=== PATIENT | female | born 1990 | race American Indian/Alaskan Native ===

== ENCOUNTER 2019-05-14 12:09 | Inpatient (IN) | payer OTHER ==
--- NOTE | 2019-05-14 12:19 | Emergency Department Report ---
Blank Doc - Documentation Documentation: 29-year-old female that presents with flank pains and urinary symptoms. Stated has n/v. This initial assessment/diagnostic orders/clinical plan/treatment(s) is/are subject to change based on patient's health status, clinical progression and re- assessment by fellow clinical providers in the ED. Further treatment and workup at subsequent clinical providers discretion. Patient/guardians urged not to elope from the ED as their condition may be serious if not clinically assessed and managed. Initial orders include: 1- Patient sent to [facility] for further evaluation and treatment 2- labs 3- UA
[2019-05-14 14:50] LABS: Hemoglobin 12.5 gm/dl (10.1-14.3); Mean Corpuscular HGB Conc 32 % (30-34); Mean Corpuscular Volume 76 fl (79-97); Platelet Count 262 K/mm3 (140-440); Red Blood Count 5.13 M/mm3 (3.65-5.03); Red Cell Distribution Width 13.8 % (13.2-15.2)
[2019-05-14 14:51] LABS: Bacteria,Urine 1+ /HPF (Negative); Bilirubin,Urine MOD (Negative); Blood,Urine NEG (Negative); Color,Urine Amber (Yellow); Hyaline Casts,Urine 4 /LPF; Mucus,Urine 2+ /HPF
[2019-05-14] MEDS ORDERED: ONDANSETRON 4 MG ODT TAB PO ONE (14:56)
[2019-05-14 14:58] LABS: Albumin 4.1 g/dL (3.9-5); BUN/Creatinine Ratio 11; Blood Urea Nitrogen 8 mg/dL (7-17); Calcium 9.2 mg/dL (8.4-10.2); Hemolysis Index 0
[2019-05-14 15:01] LABS: Ictotest,Urine Positive (Negative)
--- NOTE | 2019-05-14 15:04 | Emergency Department Report ---
HPI - General Chief Complaint: Back Pain/Injury Time Seen by Provider: 05/14/19 12:18 - HPI HPI: 29-year-old -[place] female presents to the emergency department with complaint of back pain, upper abdominal pain, chills, nausea, vomiting for the p ast few days. The patient was recently started on some Bactrim for a urinary tract infection 3 days ago. Otherwise she has not taken anything for her symptoms prior to arrival. No past medical history. She does not have a primary care physician. Patient recently traveled to [place]. ED Past Medical Hx - Past Medical History Previous Medical History?: No - Surgical History Past Surgical History?: No - Social History Smoking Status: Never Smoker Substance Use Type: Alcohol ED Review of Systems ROS: Stated complaint: VOMIT/BODY ACHE/PAIN Other details as noted in HPI Comment: All other systems reviewed and negative Constitutional: chills. denies: diaphoresis Eyes: other (scleral icterus / jaundice). denies: eye pain ENT: denies: ear pain, throat pain Respiratory: denies: cough, shortness of breath Cardiovascular: denies: chest pain, palpitations Gastrointestinal: abdominal pain, nausea Genitourinary: dysuria. denies: discharge Musculoskeletal: back pain. denies: arthralgia Skin: change in color. denies: rash Neurological: denies: headache, numbness Physical Exam - Physical Exam Vital Signs: Vital Signs 05/14/19 12:18 Temperature 98.4 F Pulse Rate 78 Respiratory 16 Rate Blood Pressure 119/72 O2 Sat by Pulse 98 Oximetry Physical Exam: GENERAL: The patient is well-developed well-nourished. HENT: Normocephalic. Atraumatic. Patient has moist mucous membranes. EYES: Extraocular motions are intact. Pupils equal reactive to light bilaterally. There is scleral icterus. NECK: Supple. Trachea is midline. CHEST/LUNGS: Clear to auscultation. There is no respiratory distress noted. HEART/CARDIOVASCULAR: Regular. There is no tachycardia. There is no murmur. ABDOMEN: Abdomen is soft. Mild right upper quadrant and left upper quadrant tenderness to palpation. No epigastric tenderness to palpation. No guarding. Patient has normal bowel sounds. There is no abdominal distention. SKIN: Skin is warm and dry. Patient is jaundiced. NEURO: The patient is awake, alert, and oriented. The patient is cooperative. The patient has no focal neurologic deficits. Normal speech. MUSCULOSKELETAL: There is no tenderness or deformity. There is no evidence of acute injury. ED Course Vital Signs 05/14/19 12:18 Temperature 98.4 F Pulse Rate 78 Respiratory 16 Rate Blood Pressure 119/72 O2 Sat by Pulse 98 Oximetry - Consultations Consultation #1: I spoke with the air bag stripper on-call, Dr. Brambila, regarding the patient's presentation, jaundice, elevated LFTs and bilirubin. He agrees that the patient may benefit from an admission for further workup. He recommends sending an acute hepatitis panel, AMA, coags, Tylenol level and putting the patient on some IV fluid. GI will see the patient as a consult. 05/14/19 18:01 ED Medical Decision Making - Lab Data Result diagrams: 05/14/19 13:34 05/14/19 13:34 - Radiology Data Radiology results: report reviewed Abdominal ultrasound is a normal examination without any acute process found. - Medical Decision Making This patient presents with the initial complaint of some back pain, mild abdominal pain, chills, nausea and jaundice after being on the Bactrim for a urinary tract infection. The patient does have some scleral icterus and gen eralized jaundice but otherwise does not appear in any acute distress. Vital signs stable throughout her ED course. Patient's labs came back showing severely elevated bilirubin and LFTs. Abdominal ultrasound did not show any signs of cholelithiasis, cholecystitis, biliary ductal dilation or any other acute process. Further lab tests have been ordered. GI has been contacted and consult at. The patient has been accepted for admission by the hospitalist, Dr. Quezada. - Differential Diagnosis hepatitis, autoimmune, choledocholithiasis, malignancy Critical Care Time: No Critical care attestation.: If time is entered above; I have spent that time in minutes in the direct care of this critically ill patient, excluding procedure time. ED Disposition Clinical Impression: Acute hepatitis, Transaminitis, Elevated bilirubin, Jaundice Disposition: OP ADMIT IP TO THIS HOSP Is pt being admited?: Yes Condition: Fair Time of Disposition: 17:58
[2019-05-14 15:26] LABS: Alanine Aminotransferase 2747 units/L (7-56)
[2019-05-14 16:59] LABS: Basophils % (Manual) 0 % (0.0-1.8); Eosinophils % (Manual) 0 % (0.0-4.3); Hypochromasia 1+; Total Cells Counted 100
[2019-05-14 17:00] LABS: Anisocytosis 1+; Large Platelets 1+; Platelet Estimate Consistent w Auto; Target Cells 1+
[2019-05-14] MEDS ORDERED: POTASSIUM CHLORIDE ER 20 MEQ TAB PO ONE (17:04)
--- NOTE | 2019-05-14 17:24 | Ultrasound Report ---
ULTRASOUND ABDOMEN, LIMITED (RIGHT UPPER QUADRANT) INDICATION: abd pain, jaundice, elevated bilirubin/LFTs. COMPARISON: None available. FINDINGS: Pancreas: Visualized portion shows no significant abnormality. Liver: Normal. Gallbladder: Normal. Bile ducts: Normal. Common Bile Duct measures 2.0 mm. Free fluid: None. Additional Findings: None. IMPRESSION: 1. No sonographic abnormality of the right upper quadrant. Signer Name: Ash Molina MD Signed: 05/14/2019 5:19 PM Workstation Name: [id number]
[2019-05-14] MEDS ORDERED: SODIUM CHLORIDE 0.9% 1000 ML 1,000 ML IV ONE (17:55)
[2019-05-14 20:36] LABS: INR 1.12 (0.87-1.13)
[2019-05-14 20:37] LABS: Partial Thromboplastin Time 26.2 Sec. (24.2-36.6)
[2019-05-14 20:43] LABS: Hepatitis B Surface Antigen Non-Reactive (Negative); Hepatitis C Virus Antibody Non-Reactive (NonReactive)
[2019-05-14] MEDS ORDERED: ONDANSETRON 4 MG/2 ML INJ IV PRN (20:57)
--- NOTE | 2019-05-14 21:18 | History and Physical Report ---
History of Present Illness Date of examination: 05/14/19 Date of admission: 05/14/19 17:58 Chief complaint: Weakness and vomiting x 2 days History of present illness: 29-year-old -[place] female presents to the emergency department with complaint of back pain, upper abdominal pain, chills, nausea, vomiting for the past few days. The patient was recently started on some Bactrim for a urinary tract infection 3 days ago. Otherwise she has not taken anything for her symptoms prior to arrival. No past medical history. She does not have a primary care physician. Patient recently traveled to [place]. Past Medical History Previous Medical History?: No Surgical History Past Surgical History?: No Social History Smoking Status: Never Smoker Substance Use Type: Alcohol Family History No Review of Systems ROS: Stated complaint: VOMIT/BODY ACHE/PAIN Other details as noted in HPI Comment: All other systems reviewed and negative Constitutional: chills. denies: diaphoresis Eyes: other (scleral icterus / jaundice). denies: eye pain ENT: denies: ear pain, throat pain Respiratory: denies: cough, shortness of breath Cardiovascular: denies: chest pain, palpitations Gastrointestinal: abdominal pain, nausea Genitourinary: dysuria. denies: discharge Musculoskeletal: back pain. denies: arthralgia Skin: change in color. denies: rash Neurological: denies: headache, numbness Medications and Allergies Allergies Allergy/AdvReac Type Severity Reaction Status Date / Time No Known Allergies Allergy Verified 05/14/19 21:05 Home Medications Medication Instructions Recorded Confirmed Last Taken Type No Known Home Medications [No 05/14/19 05/14/19 Unknown History Reported Home Medications] Active Meds: Active Medications Sodium Chloride (Nacl 0.9% 1000 Ml) 1,000 mls @ 125 mls/hr IV ONCE ONE Stop: 05/15/19 01:54 Last Admin: 05/14/19 18:10 Dose: 125 mls/hr Documented by: Ondansetron HCl (Zofran) 4 mg IV Q3HR PRN PRN Reason: Nausea Exam - Constitutional Vitals: Temp Pulse Resp BP Pulse Ox 97.8 F 63 18 118/71 97 05/14/19 20:21 05/14/19 20:21 05/14/19 20:21 05/14/19 20:21 05/14/19 20:21 General appearance: Present: no acute distress, well-nourished - EENT Eyes: Present: PERRL, scleral icterus ENT: hearing intact, clear oral mucosa - Neck Neck: Present: supple, normal ROM - Respiratory Respiratory effort: normal Respiratory: bilateral: CTA - Cardiovascular Heart rate: 78 Rhythm: regular Heart Sounds: Present: S1 & S2. Absent: rub, click - Extremities Extremities: no ischemia, pulses intact, pulses symmetrical, No edema Peripheral Pulses: within normal limits - Abdominal General gastrointestinal: Present: soft, tender, non-distended, normal bowel sounds Localized gastrointestinal: tender: diffuse Female genitourinary: Present: normal - Rectal Rectal Exam: stool brown - Integumentary Integumentary: Present: clear, warm, dry - Musculoskeletal Musculoskeletal: gait normal, strength equal bilaterally - Psychiatric Psychiatric: appropriate mood/affect, intact judgment & insight - Neurologic Neurologic: CNII-XII intact, moves all extremities - Allied Health Allied health notes reviewed: nursing, case management Results - Labs CBC & Chem 7: 05/14/19 13:34 05/14/19 13:34 Labs: Laboratory Last Values WBC 6.9 K/mm3 (4.5-11.0) 05/14/19 13:34 RBC 5.13 M/mm3 (3.65-5.03) H 05/14/19 13:34 Hgb 12.5 gm/dl (10.1-14.3) 05/14/19 13:34 Hct 39.0 % (30.3-42.9) 05/14/19 13:34 MCV 76 fl (79-97) L 05/14/19 13:34 MCH 24 pg (28-32) L 05/14/19 13:34 MCHC 32 % (30-34) 05/14/19 13:34 RDW 13.8 % (13.2-15.2) 05/14/19 13:34 Plt Count 262 K/mm3 (140-440) 05/14/19 13:34 Kinney % (Auto) Popcorn Candy Maker 05/14/19 13:34 Add Manual Diff Complete 05/14/19 13:34 Total Counted 100 05/14/19 13:34 Seg Neuts % (Manual) 50.0 % (40.0-70.0) 05/14/19 13:34 Band Neutrophils % 0 % 05/14/19 13:34 Lymphocytes % (Manual) 21.0 % (13.4-35.0) 05/14/19 13:34 Reactive Lymphs % (Man) 6.0 % 05/14/19 13:34 Monocytes % (Manual) 23.0 % (0.0-7.3) H 05/14/19 13:34 Eosinophils % (Manual) 0 % (0.0-4.3) 05/14/19 13:34 Basophils % (Manual) 0 % (0.0-1.8) 05/14/19 13:34 Metamyelocytes % 0 % 05/14/19 13:34 Myelocytes % 0 % 05/14/19 13:34 Promyelocytes % 0 % 05/14/19 13:34 Blast Cells % 0 % 05/14/19 13:34 Nucleated RBC % Not Reportable 05/14/19 13:34 Seg Neutrophils # Man 3.5 K/mm3 (1.8-7.7) 05/14/19 13:34 Band Neutrophils # 0.0 K/mm3 05/14/19 13:34 Lymphocytes # (Manual) 1.4 K/mm3 (1.2-5.4) 05/14/19 13:34 Abs React Lymphs (Man) 0.4 K/mm3 05/14/19 13:34 Monocytes # (Manual) 1.6 K/mm3 (0.0-0.8) H 05/14/19 13:34 Eosinophils # (Manual) 0.0 K/mm3 (0.0-0.4) 05/14/19 13:34 Basophils # (Manual) 0.0 K/mm3 (0.0-0.1) 05/14/19 13:34 Metamyelocytes # 0.0 K/mm3 05/14/19 13:34 Myelocytes # 0.0 K/mm3 05/14/19 13:34 Promyelocytes # 0.0 K/mm3 05/14/19 13:34 Blast Cells # 0.0 K/mm3 05/14/19 13:34 WBC Morphology Not Reportable 05/14/19 13:34 Hypersegmented Neuts Not Reportable 05/14/19 13:34 Hyposegmented Neuts Not Reportable 05/14/19 13:34 Hypogranular Neuts Not Reportable 05/14/19 13:34 Smudge Cells Not Reportable 05/14/19 13:34 Toxic Granulation Not Reportable 05/14/19 13:34 Toxic Vacuolation Not Reportable 05/14/19 13:34 Dohle Bodies Not Reportable 05/14/19 13:34 Pelger-Huet Anomaly Not Reportable 05/14/19 13:34 Pankaj Rods Not Reportable 05/14/19 13:34 Platelet Estimate Consistent w auto 05/14/19 13:34 Clumped Platelets Not Reportable 05/14/19 13:34 Plt Clumps, EDTA Not Reportable 05/14/19 13:34 Large Platelets 1+ 05/14/19 13:34 Giant Platelets Not Reportable 05/14/19 13:34 Platelet Satelliting Not Reportable 05/14/19 13:34 Plt Morphology Comment Not Reportable 05/14/19 13:34 RBC Morphology Not Reportable 05/14/19 13:34 Dimorphic RBCs Not Reportable 05/14/19 13:34 Polychromasia Not Reportable 05/14/19 13:34 Hypochromasia 1+ 05/14/19 13:34 Poikilocytosis Not Reportable 05/14/19 13:34 Anisocytosis 1+ 05/14/19 13:34 Microcytosis Not Reportable 05/14/19 13:34 Macrocytosis Not Reportable 05/14/19 13:34 Spherocytes Not Reportable 05/14/19 13:34 Pappenheimer Bodies Not Reportable 05/14/19 13:34 Sickle Cells Not Reportable 05/14/19 13:34 Target Cells 1+ 05/14/19 13:34 Tear Drop Cells Not Reportable 05/14/19 13:34 Ovalocytes Not Reportable 05/14/19 13:34 Helmet Cells Not Reportable 05/14/19 13:34 Loyd-Delmita Bodies Not Reportable 05/14/19 13:34 [place] Rings Not Reportable 05/14/19 13:34 [place] Cells Not Reportable 05/14/19 13:34 Bite Cells Not Reportable 05/14/19 13:34 Crenated Cell Not Reportable 05/14/19 13:34 Elliptocytes Not Reportable 05/14/19 13:34 Acanthocytes (Spur) Not Reportable 05/14/19 13:34 Rouleaux Not Reportable 05/14/19 13:34 Hemoglobin C Crystals Not Reportable 05/14/19 13:34 Schistocytes Not Reportable 05/14/19 13:34 Malaria parasites Not Reportable 05/14/19 13:34 Jorge Bodies Not Reportable 05/14/19 13:34 Hem Pathologist Commnt Sent to pathology 05/14/19 13:34 PT 14.3 Sec. (12.2-14.9) 05/14/19 19:56 INR 1.12 (0.87-1.13) 05/14/19 19:56 APTT 26.2 Sec. (24.2-36.6) 05/14/19 19:56 Sodium 135 mmol/L (137-145) L 05/14/19 13:34 Potassium 3.2 mmol/L (3.6-5.0) L 05/14/19 13:34 Chloride 91.9 mmol/L (98-107) L 05/14/19 13:34 Carbon Dioxide 24 mmol/L (22-30) 05/14/19 13:34 Anion Gap 22 mmol/L 05/14/19 13:34 BUN 8 mg/dL (7-17) 05/14/19 13:34 Creatinine 0.7 mg/dL (0.7-1.2) 05/14/19 13:34 Estimated GFR > 60 ml/min 05/14/19 13:34 BUN/Creatinine Ratio 11 % 05/14/19 13:34 Glucose 90 mg/dL (65-100) 05/14/19 13:34 Calcium 9.2 mg/dL (8.4-10.2) 05/14/19 13:34 Total Bilirubin 8.40 mg/dL (0.1-1.2) H 05/14/19 13:34 AST 2363 units/L (5-40) H 05/14/19 13:34 ALT 2747 units/L (7-56) H 05/14/19 13:34 Alkaline Phosphatase 179 units/L (35-129) H 05/14/19 13:34 Total Protein 9.1 g/dL (6.3-8.2) H 05/14/19 13:34 Albumin 4.1 g/dL (3.9-5) 05/14/19 13:34 Albumin/Globulin Ratio 0.8 % 05/14/19 13:34 Lipase 40 units/L (13-60) 05/14/19 13:34 HCG, Qual Negative (Negative) 05/14/19 13:34 Urine Color Keshia (Yellow) 05/14/19 14:17 Urine Turbidity Clear (Clear) 05/14/19 14:17 Urine pH 6.0 (5.0-7.0) 05/14/19 14:17 Ur Specific Leland 1.026 (1.003-1.030) 05/14/19 14:17 Urine Protein 100 mg/dl mg/dL (Negative) 05/14/19 14:17 Urine Glucose (UA) Neg mg/dL (Negative) 05/14/19 14:17 Urine Ketones 20 mg/dL (Negative) 05/14/19 14:17 Urine Blood Neg (Negative) 05/14/19 14:17 Urine Nitrite Neg (Negative) 05/14/19 14:17 Urine Bilirubin Mod (Negative) 05/14/19 14:17 Urine Ictotest Positive (Negative) 05/14/19 14:17 Urine Urobilinogen 4.0 mg/dL (<2.0) 05/14/19 14:17 Ur Leukocyte Esterase Neg (Negative) 05/14/19 14:17 Urine WBC (Auto) 36.0 /HPF (0.0-6.0) H 05/14/19 14:17 Urine RBC (Auto) 6.0 /HPF (0.0-6.0) 05/14/19 14:17 U Epithel Cells (Auto) 5.0 /HPF (0-13.0) 05/14/19 14:17 Urine Bacteria (Auto) 1+ /HPF (Negative) 05/14/19 14:17 Urine WBC Clumps 2+ /HPF 05/14/19 14:17 Hyaline Casts 4 /LPF 05/14/19 14:17 Urine Mucus 2+ /HPF 05/14/19 14:17 Acetaminophen < 5.0 ug/mL (10.0-30.0) L 05/14/19 19:56 Hepatitis A IgM Ab Reactive (NonReactive) A 05/14/19 19:56 Hep Bs Antigen Non-reactive (Negative) 05/14/19 19:56 Hep B Core IgM Ab Non-reactive (NonReactive) 05/14/19 19:56 Hepatitis C Antibody Non-reactive (NonReactive) 05/14/19 19:56 Short CBC 05/14/19 Range/Units 13:34 WBC 6.9 (4.5-11.0) K/mm3 Hgb 12.5 (10.1-14.3) gm/dl Hct 39.0 (30.3-42.9) % Plt Count 262 (140-440) K/mm3 [facility] 05/14/19 13:34 Sodium 135 L Potassium 3.2 L Chloride 91.9 L Carbon Dioxide 24 BUN 8 Creatinine 0.7 Glucose 90 Calcium 9.2 Liver Function 05/14/19 Range/Units 13:34 Total Bilirubin 8.40 H (0.1-1.2) mg/dL AST 2363 H (5-40) units/L ALT 2747 H (7-56) units/L Alkaline Phosphatase 179 H (35-129) units/L Albumin 4.1 (3.9-5) g/dL Urine 05/14/19 Range/Units 14:17 Urine Color Keshia (Yellow) Urine pH 6.0 (5.0-7.0) Ur Specific Leland 1.026 (1.003-1.030) Urine Protein 100 mg/dl (Negative) mg/dL Urine Glucose (UA) Neg (Negative) mg/dL Short CBC 05/14/19 Range/Units 13:34 WBC 6.9 (4.5-11.0) K/mm3 Hgb 12.5 (10.1-14.3) gm/dl Hct 39.0 (30.3-42.9) % Plt Count 262 (140-440) K/mm3 [facility] 05/14/19 13:34 Sodium 135 L Potassium 3.2 L Chloride 91.9 L Carbon Dioxide 24 BUN 8 Creatinine 0.7 Glucose 90 Calcium 9.2 Liver Function 05/14/19 Range/Units 13:34 Total Bilirubin 8.40 H (0.1-1.2) mg/dL AST 2363 H (5-40) units/L ALT 2747 H (7-56) units/L Alkaline Phosphatase 179 H (35-129) units/L Albumin 4.1 (3.9-5) g/dL Urine 05/14/19 Range/Units 14:17 Urine Color Keshia (Yellow) Urine pH 6.0 (5.0-7.0) Ur Specific Leland 1.026 (1.003-1.030) Urine Protein 100 mg/dl (Negative) mg/dL Urine Glucose (UA) Neg (Negative) mg/dL - Imaging and Cardiology Imaging and Cardiology: Abd Ultrasound FINDINGS: Pancreas: Visualized portion shows no significant abnormality. Liver: Normal. Gallbladder: Normal. Bile ducts: Normal. Common Bile Duct measures 2.0 mm. Free fluid: None. Additional Findings: None. IMPRESSION: 1. No sonographic abnormality of the right upper quadrant. Assessment and Plan Advance Directives: Yes (Full code) VTE prophylaxis?: Chemical Plan of care discussed with patient/family: Yes - Patient Problems (1) Acute hepatitis Current Visit: Yes Status: Acute Plan to address problem: Sec to Hepatitis A ID consult requested Contact Isolation IV Fluids (2) Transaminitis Current Visit: Yes Status: Acute Plan to address problem: Sec To Hepatitis A Contact Isolation Symptomatic treatment IV Fluids (3) Dehydration Current Visit: Yes Status: Acute Plan to address problem: IV Fluids for now (4) Hypokalemia Current Visit: Yes Status: Acute Plan to address problem: Supplemented (5) DVT prophylaxis Current Visit: Yes Status: Acute Plan to address problem: On Lovenox and GI prophylaxis
[2019-05-14] MEDS ORDERED: ACETAMINOPHEN 325 MG TAB PO PRN (21:22)
[2019-05-14] MEDS: D5W/0.9% NACL 1,000 ML IV SCH (22:59)
[2019-05-14] MEDS: FAMOTIDINE 20 MG/2 ML INJ IV SCH (22:59)
[2019-05-15] MEDS ORDERED: POTASSIUM CHLORIDE ER 20 MEQ TAB PO ONE (06:32)
[2019-05-15 07:01] LABS: Albumin 3.4 g/dL (3.9-5); BUN/Creatinine Ratio 10; Blood Urea Nitrogen 6 mg/dL (7-17); Calcium 8.3 mg/dL (8.4-10.2); Hemolysis Index 4
[2019-05-15 07:19] LABS: Hematocrit 34.2 % (30.3-42.9); Hemoglobin 10.9 gm/dl (10.1-14.3); Mean Corpuscular HGB Conc 32 % (30-34); Mean Corpuscular Volume 76 fl (79-97); Platelet Count 242 K/mm3 (140-440); Red Blood Count 4.51 M/mm3 (3.65-5.03); Red Cell Distribution Width 13.6 % (13.2-15.2)
[2019-05-15 08:44] LABS: Alanine Aminotransferase 2525 units/L (7-56)
[2019-05-15 09:32] LABS: Basophils % (Manual) 0 % (0.0-1.8); Total Cells Counted 100
[2019-05-15 09:33] LABS: Anisocytosis 1+; Hypochromasia 1+
[2019-05-15 09:34] LABS: Large Platelets Few; Platelet Estimate Consistent w Auto; Poikilocytosis 1+; Target Cells 1+
[2019-05-15] MEDS: FAMOTIDINE 20 MG/2 ML INJ IV SCH (09:34)
[2019-05-15] MEDS: HYDROmorphone 1 MG/1 ML INJ IV PRN ×4 (09:43→21:40)
[2019-05-15] MEDS: D5W/0.9% NACL 1,000 ML IV SCH ×2 (09:47→18:36)
--- NOTE | 2019-05-15 10:13 | Gastroenterology Consultation ---
<YESY PATTERSON - Last Filed: 05/15/19 10:28> History of Present Illness - Reason for Consult Consult date: 05/15/19 elevated LFTs, jaundice Requesting physician: EMILIANA SWAIN - History of Present Illness Patient is a 29 y/o female with no significant PMH who presented to ED with c/o acute onset of body aches/back pain, upper abdominal pain, chills, and N/V over the past few days. Upon admission, she was found to have elevated LFTs and po sitive for hepatitis A to which GI has been consulted. This morning patient was resting in bed w/o acute distress but noted to be somnolent from recent dose of pain medication per family at bedside who assisted with providing history. Reports symptoms now improving with no c/o of current abd pain and no N/V this am. Denies fever, wt loss, CP, SOB, signs of bleeding, or LGI symptoms such as diarrhea or constipation. No new medications except recently took Bactrim for UTI. Traveled to [place] last month but no known ill contacts. Has no prior hx or Fhx of liver disease. Drinks alcohol occasionally but no hx of IV drug use. Past History Past Medical History: No medical history Past Surgical History: No surgical history Social history: no significant social history, other (alcohol-occasional). den ies: smoking Medications and Allergies Allergies Allergy/AdvReac Type Severity Reaction Status Date / Time No Known Allergies Allergy Verified 05/14/19 21:05 Home Medications Medication Instructions Recorded Confirmed Last Taken Type No Known Home Medications [No 05/14/19 05/14/19 Unknown History Reported Home Medications] Active Meds: Active Medications Acetaminophen (Tylenol) 650 mg PO Q4H PRN PRN Reason: Pain MILD(1-3)/Fever >100.5/HWANG Famotidine (Pepcid) 20 mg IV BID KUSUM Last Admin: 05/15/19 09:34 Dose: 20 mg Documented by: Hydromorphone HCl (Dilaudid) 0.5 mg IV Q3H PRN PRN Reason: Pain , Severe (7-10) Last Admin: 05/15/19 09:43 Dose: 0.5 mg Documented by: Dextrose/Sodium Chloride (D5ns) 1,000 mls @ 75 mls/hr IV DIRECT KUSUM Last Admin: 05/15/19 09:47 Dose: 75 mls/hr Documented by: Ondansetron HCl (Zofran) 4 mg IV Q3H PRN PRN Reason: Nausea And Vomiting Sodium Chloride (Sodium Chloride Flush Syringe 10 Ml) 10 ml IV BID KUSUM Last Admin: 05/15/19 09:48 Dose: 10 ml Documented by: Sodium Chloride (Sodium Chloride Flush Syringe 10 Ml) 10 ml IV PRN PRN PRN Reason: LINE FLUSH medications reviewed/updated as required Review of Systems - Review of Systems All systems: negative Constitutional: chills, other (body aches) Gastrointestinal: abdominal pain, nausea, vomiting Exam - Constitutional Vital Signs: Temp Pulse Resp BP Pulse Ox 98.1 F 60 16 106/54 100 05/15/19 05:45 05/15/19 05:45 05/15/19 05:45 05/15/19 05:45 05/15/19 05:45 General appearance: no acute distress, other (somnolent) - Respiratory Respiratory effort: normal Respiratory: bilateral: CTA - Cardiovascular Rhythm: regular - Gastrointestinal General gastrointestinal: Present: soft, non-tender, non-distended, normal bowel sounds - Integumentary Integumentary: Present: warm, dry - Neurologic Neurological: alert and oriented x3 - Labs CBC & Chem 7: 05/15/19 06:12 05/15/19 06:12 Lab Results: Laboratory Results - last 24 hr 05/14/19 05/14/19 05/14/19 13:34 13:34 13:34 WBC 6.9 RBC 5.13 H Hgb 12.5 Hct 39.0 MCV 76 L MCH 24 L MCHC 32 RDW 13.8 Plt Count 262 Emmons % (Auto) Wool [place] Add Manual Diff Complete Total Counted 100 Seg Neuts % (Manual) 50.0 Band Neutrophils % 0 Lymphocytes % (Manual) 21.0 Reactive Lymphs % (Man) 6.0 Monocytes % (Manual) 23.0 H Eosinophils % (Manual) 0 Basophils % (Manual) 0 Metamyelocytes % 0 Myelocytes % 0 Promyelocytes % 0 Blast Cells % 0 Nucleated RBC % Not Reportable Seg Neutrophils # Man 3.5 Band Neutrophils # 0.0 Lymphocytes # (Manual) 1.4 Abs React Lymphs (Man) 0.4 Monocytes # (Manual) 1.6 H Eosinophils # (Manual) 0.0 Basophils # (Manual) 0.0 Metamyelocytes # 0.0 Myelocytes # 0.0 Promyelocytes # 0.0 Blast Cells # 0.0 WBC Morphology Not Reportable Hypersegmented Neuts Not Reportable Hyposegmented Neuts Not Reportable Hypogranular Neuts Not Reportable Smudge Cells Not Reportable Toxic Granulation Not Reportable Toxic Vacuolation Not Reportable Dohle Bodies Not Reportable Pelger-Huet Anomaly Not Reportable Pankaj Rods Not Reportable Platelet Estimate Consistent w auto Clumped Platelets Not Reportable Plt Clumps, EDTA Not Reportable Large Platelets 1+ Giant Platelets Not Reportable Platelet Satelliting Not Reportable Plt Morphology Comment Not Reportable RBC Morphology Not Reportable Dimorphic RBCs Not Reportable Polychromasia Not Reportable Hypochromasia 1+ Poikilocytosis Not Reportable Anisocytosis 1+ Microcytosis Not Reportable Macrocytosis Not Reportable Spherocytes Not Reportable Pappenheimer Bodies Not Reportable Sickle Cells Not Reportable Target Cells 1+ Tear Drop Cells Not Reportable Ovalocytes Not Reportable Helmet Cells Not Reportable [place] Bodies Not Reportable [place] Rings Not Reportable [place] Cells Not Reportable Bite Cells Not Reportable Crenated Cell Not Reportable Elliptocytes Not Reportable Acanthocytes (Spur) Not Reportable Rouleaux Not Reportable Hemoglobin C Crystals Not Reportable Schistocytes Not Reportable Malaria parasites Not Reportable Jorge Bodies Not Reportable Hem Pathologist Commnt Sent to pathology PT INR APTT Sodium 135 L Potassium 3.2 L Chloride 91.9 L Carbon Dioxide 24 Anion Gap 22 BUN 8 Creatinine 0.7 Estimated GFR > 60 BUN/Creatinine Ratio 11 Glucose 90 Calcium 9.2 Total Bilirubin 8.40 H AST 2363 H ALT 2747 H Alkaline Phosphatase 179 H Total Protein 9.1 H Albumin 4.1 Albumin/Globulin Ratio 0.8 Lipase 40 HCG, Qual Negative Urine Color Urine Turbidity Urine pH Ur Specific [place] Urine Protein Urine Glucose (UA) Urine Ketones Urine Blood Urine Nitrite Urine Bilirubin Urine Ictotest Urine Urobilinogen Ur Leukocyte Esterase Urine WBC (Auto) Urine RBC (Auto) U Epithel Cells (Auto) Urine Bacteria (Auto) Urine WBC Clumps Hyaline Casts Urine Mucus Acetaminophen Hepatitis A IgM Ab Hep Bs Antigen Hep B Core IgM Ab Hepatitis C Antibody 05/14/19 05/14/19 05/14/19 14:17 19:56 19:56 WBC RBC Hgb Hct MCV MCH MCHC RDW Plt Count Emmons % (Auto) Add Manual Diff Total Counted Seg Neuts % (Manual) Band Neutrophils % Lymphocytes % (Manual) Reactive Lymphs % (Man) Monocytes % (Manual) Eosinophils % (Manual) Basophils % (Manual) Metamyelocytes % Myelocytes % Promyelocytes % Blast Cells % Nucleated RBC % Seg Neutrophils # Man Band Neutrophils # Lymphocytes # (Manual) Abs React Lymphs (Man) Monocytes # (Manual) Eosinophils # (Manual) Basophils # (Manual) Metamyelocytes # Myelocytes # Promyelocytes # Blast Cells # WBC Morphology Hypersegmented Neuts Hyposegmented Neuts Hypogranular Neuts Smudge Cells Toxic Granulation Toxic Vacuolation Dohle Bodies Pelger-Huet Anomaly Pankaj Rods Platelet Estimate Clumped Platelets Plt Clumps, EDTA Large Platelets Giant Platelets Platelet Satelliting Plt Morphology Comment RBC Morphology Dimorphic RBCs Polychromasia Hypochromasia Poikilocytosis Anisocytosis Microcytosis Macrocytosis Spherocytes Pappenheimer Bodies Sickle Cells Target Cells Tear Drop Cells Ovalocytes Helmet Cells L[place] Bodies [place] Rings Gus Cells Bite Cells Crenated Cell Elliptocytes Acanthocytes (Spur) Rouleaux Hemoglobin C Crystals Schistocytes Malaria parasites Jorge Bodies Hem Pathologist Commnt PT 14.3 INR 1.12 APTT 26.2 Sodium Potassium Chloride Carbon Dioxide Anion Gap BUN Creatinine Estimated GFR BUN/Creatinine Ratio Glucose Calcium Total Bilirubin AST ALT Alkaline Phosphatase Total Protein Albumin Albumin/Globulin Ratio Lipase HCG, Qual Urine Color [place] Urine Turbidity Clear Urine pH 6.0 Ur Specific [place] 1.026 Urine Protein 100 mg/dl Urine Glucose (UA) Neg Urine Ketones 20 Urine Blood Neg Urine Nitrite Neg Urine Bilirubin Mod Urine Ictotest Positive Urine Urobilinogen 4.0 Ur Leukocyte Esterase Neg Urine WBC (Auto) 36.0 H Urine RBC (Auto) 6.0 U Epithel Cells (Auto) 5.0 Urine Bacteria (Auto) 1+ Urine WBC Clumps 2+ Hyaline Casts 4 Urine Mucus 2+ Acetaminophen Hepatitis A IgM Ab Reactive A Hep Bs Antigen Non-reactive Hep B Core IgM Ab Non-reactive Hepatitis C Antibody Non-reactive 05/14/19 05/15/19 05/15/19 19:56 06:12 06:12 WBC 5.2 RBC 4.51 Hgb 10.9 Hct 34.2 MCV 76 L MCH 24 L MCHC 32 RDW 13.6 Plt Count 242 Emm[place] % (Auto) [place] Add Manual Diff Complete Total Counted 100 Seg Neuts % (Manual) 41.0 Band Neutrophils % 0 Lymphocytes % (Manual) 34.0 Reactive Lymphs % (Man) 3.0 Monocytes % (Manual) 17.0 H Eosinophils % (Manual) 5.0 H Basophils % (Manual) 0 Metamyelocytes % 0 Myelocytes % 0 Promyelocytes % 0 Blast Cells % 0 Nucleated RBC % Not Reportable Seg Neutrophils # Man 2.1 Band Neutrophils # 0.0 Lymphocytes # (Manual) 1.8 Abs React Lymphs (Man) 0.2 Monocytes # (Manual) 0.9 H Eosinophils # (Manual) 0.3 Basophils # (Manual) 0.0 Metamyelocytes # 0.0 Myelocytes # 0.0 Promyelocytes # 0.0 Blast Cells # 0.0 WBC Morphology Not Reportable Hypersegmented Neuts Not Reportable Hyposegmented Neuts Not Reportable Hypogranular Neuts Not Reportable Smudge Cells Not Reportable Toxic Granulation Not Reportable Toxic Vacuolation Not Reportable Dohle Bodies Not Reportable Pelger-Huet Anomaly Not Reportable Pankaj Rods Not Reportable Platelet Estimate Consistent w auto Clumped Platelets Not Reportable Plt Clumps, EDTA Not Reportable Large Platelets Few Giant Platelets Not Reportable Platelet Satelliting Not Reportable Plt Morphology Comment Not Reportable RBC Morphology Not Reportable Dimorphic RBCs Not Reportable Polychromasia Not Reportable Hypochromasia 1+ Poikilocytosis 1+ Anisocytosis 1+ Microcytosis Not Reportable Macrocytosis Not Reportable Spherocytes Not Reportable Pappenheimer Bodies Not Reportable Sickle Cells Not Reportable Target Cells 1+ Tear Drop Cells Not Reportable Ovalocytes Not Reportable Helmet Cells Not Reportable L[place] Bodies Not Reportable [place] Rings Not Reportable Gus Cells Not Reportable Bite Cells Not Reportable Crenated Cell Not Reportable Elliptocytes Not Reportable Acanthocytes (Spur) Not Reportable Rouleaux Not Reportable Hemoglobin C Crystals Not Reportable Schistocytes Not Reportable Malaria parasites Not Reportable Jorge Bodies Not Reportable Hem Pathologist Commnt No PT INR APTT Sodium 136 L Potassium 3.4 L Chloride 99.3 Carbon Dioxide 24 Anion Gap 16 BUN 6 L Creatinine 0.6 L Estimated GFR > 60 BUN/Creatinine Ratio 10 Glucose 107 H Calcium 8.3 L Total Bilirubin 7.00 H AST 1354 H ALT 2525 H Alkaline Phosphatase 159 H Total Protein 7.9 Albumin 3.4 L Albumin/Globulin Ratio 0.8 Lipase HCG, Qual Urine Color Urine Turbidity Urine pH Ur Specific [place] Urine Protein Urine Glucose (UA) Urine Ketones Urine Blood Urine Nitrite Urine Bilirubin Urine Ictotest Urine Urobilinogen Ur Leukocyte Esterase Urine WBC (Auto) Urine RBC (Auto) U Epithel Cells (Auto) Urine Bacteria (Auto) Urine WBC Clumps Hyaline Casts Urine Mucus Acetaminophen < 5.0 L Hepatitis A IgM Ab Hep Bs Antigen Hep B Core IgM Ab Hepatitis C Antibody Assessment and Plan 1.elevated LFTs 2.Hepatitis A -afebrile -WBC, H/H, and lipase WNL -INR and plt WNL -LFTs-trending down (T.kelley 7.00, AST 1354, ALT 2525, alk phos 159) -acetaminophen level negative -hepatitis panel with POSITIVE hepatitis A IgM Ab -abd U/S negative (liver normal) -etiology-likely 2/2 acute hep A -autoimmune serologies pending to r/o other causes -diet as tolerated -avoid hepatotoxic agents -continue to trend labs and supportive care -will follow <GIN PRIDE R - Last Filed: 05/15/19 15:21> Medications and Allergies Active Meds: Active Medications Acetaminophen (Tylenol) 650 mg PO Q4H PRN PRN Reason: Pain MILD(1-3)/Fever >100.5/HWANG Famotidine (Pepcid) 20 mg PO BID KUSUM Hydromorphone HCl (Dilaudid) 0.5 mg IV Q3H PRN PRN Reason: Pain , Severe (7-10) Last Admin: 05/15/19 14:53 Dose: 0.5 mg Documented by: Dextrose/Sodium Chloride (D5ns) 1,000 mls @ 75 mls/hr IV DIRECT KUSUM Last Admin: 05/15/19 09:47 Dose: 75 mls/hr Documented by: Ondansetron HCl (Zofran) 4 mg IV Q3H PRN PRN Reason: Nausea And Vomiting Last Admin: 05/15/19 14:54 Dose: 4 mg Documented by: Sodium Chloride (Sodium Chloride Flush Syringe 10 Ml) 10 ml IV BID KUSUM Last Admin: 05/15/19 09:48 Dose: 10 ml Documented by: Sodium Chloride (Sodium Chloride Flush Syringe 10 Ml) 10 ml IV PRN PRN PRN Reason: LINE FLUSH Exam - Constitutional Vital Signs: Temp Pulse Resp BP Pulse Ox 97.9 F 56 L 14 94/57 97 05/15/19 12:21 05/15/19 12:21 05/15/19 12:21 05/15/19 12:21 05/15/19 12:21 - Labs CBC & Chem 7: 05/15/19 06:12 05/15/19 06:12 Lab Results: Laboratory Results - last 24 hr 05/14/19 05/14/19 05/14/19 13:34 13:34 19:56 WBC RBC Hgb Hct MCV MCH MCHC RDW Plt Count Emmons % (Auto) Add Manual Diff Complete Total Counted 100 Seg Neuts % (Manual) 50.0 Band Neutrophils % 0 Lymphocytes % (Manual) 21.0 Reactive Lymphs % (Man) 6.0 Monocytes % (Manual) 23.0 H Eosinophils % (Manual) 0 Basophils % (Manual) 0 Metamyelocytes % 0 Myelocytes % 0 Promyelocytes % 0 Blast Cells % 0 Nucleated RBC % Not Reportable Seg Neutrophils # Man 3.5 Band Neutrophils # 0.0 Lymphocytes # (Manual) 1.4 Abs React Lymphs (Man) 0.4 Monocytes # (Manual) 1.6 H Eosinophils # (Manual) 0.0 Basophils # (Manual) 0.0 Metamyelocytes # 0.0 Myelocytes # 0.0 Promyelocytes # 0.0 Blast Cells # 0.0 WBC Morphology Not Reportable Hypersegmented Neuts Not Reportable Hyposegmented Neuts Not Reportable Hypogranular Neuts Not Reportable Smudge Cells Not Reportable Toxic Granulation Not Reportable Toxic Vacuolation Not Reportable Dohle Bodies Not Reportable Pelger-Huet Anomaly Not Reportable Pankaj Rods Not Reportable Platelet Estimate Consistent w auto Clumped Platelets Not Reportable Plt Clumps, EDTA Not Reportable Large Platelets 1+ Giant Platelets Not Reportable Platelet Satelliting Not Reportable Plt Morphology Comment Not Reportable RBC Morphology Not Reportable Dimorphic RBCs Not Reportable Polychromasia Not Reportable Hypochromasia 1+ Poikilocytosis Not Reportable Anisocytosis 1+ Microcytosis Not Reportable Macrocytosis Not Reportable Spherocytes Not Reportable Pappenheimer Bodies Not Reportable Sickle Cells Not Reportable Target Cells 1+ Tear Drop Cells Not Reportable Ovalocytes Not Reportable Helmet Cells Not Reportable Loyd-[place] Bodies Not Reportable [place] Rings Not Reportable [place] Cells Not Reportable Bite Cells Not Reportable Crenated Cell Not Reportable Elliptocytes Not Reportable Acanthocytes (Spur) Not Reportable Rouleaux Not Reportable Hemoglobin C Crystals Not Reportable Schistocytes Not Reportable Malaria parasites Not Reportable Jorge Bodies Not Reportable Hem Pathologist Commnt Sent to pathology PT 14.3 INR 1.12 APTT 26.2 Sodium Potassium Chloride Carbon Dioxide Anion Gap BUN Creatinine Estimated GFR BUN/Creatinine Ratio Glucose Calcium Total Bilirubin AST 2363 H ALT 2747 H Alkaline Phosphatase Total Protein Albumin Albumin/Globulin Ratio Acetaminophen Hepatitis A IgM Ab Hep Bs Antigen Hep B Core IgM Ab Hepatitis C Antibody 05/14/19 05/14/19 05/15/19 19:56 19:56 06:12 WBC 5.2 RBC 4.51 Hgb 10.9 Hct 34.2 MCV 76 L MCH 24 L MCHC 32 RDW 13.6 Plt Count 242 Emmons % (Auto) [place] Add Manual Diff Complete Total Counted 100 Seg Neuts % (Manual) 41.0 Band Neutrophils % 0 Lymphocytes % (Manual) 34.0 Reactive Lymphs % (Man) 3.0 Monocytes % (Manual) 17.0 H Eosinophils % (Manual) 5.0 H Basophils % (Manual) 0 Metamyelocytes % 0 Myelocytes % 0 Promyelocytes % 0 Blast Cells % 0 Nucleated RBC % Not Reportable Seg Neutrophils # Man 2.1 Band Neutrophils # 0.0 Lymphocytes # (Manual) 1.8 Abs React Lymphs (Man) 0.2 Monocytes # (Manual) 0.9 H Eosinophils # (Manual) 0.3 Basophils # (Manual) 0.0 Metamyelocytes # 0.0 Myelocytes # 0.0 Promyelocytes # 0.0 Blast Cells # 0.0 WBC Morphology Not Reportable Hypersegmented Neuts Not Reportable Hyposegmented Neuts Not Reportable Hypogranular Neuts Not Reportable Smudge Cells Not Reportable Toxic Granulation Not Reportable Toxic Vacuolation Not Reportable Dohle Bodies Not Reportable Pelger-Huet Anomaly Not Reportable Pankaj Rods Not Reportable Platelet Estimate Consistent w auto Clumped Platelets Not Reportable Plt Clumps, EDTA Not Reportable Large Platelets Few Giant Platelets Not Reportable Platelet Satelliting Not Reportable Plt Morphology Comment Not Reportable RBC Morphology Not Reportable Dimorphic RBCs Not Reportable Polychromasia Not Reportable Hypochromasia 1+ Poikilocytosis 1+ Anisocytosis 1+ Microcytosis Not Reportable Macrocytosis Not Reportable Spherocytes Not Reportable Pappenheimer Bodies Not Reportable Sickle Cells Not Reportable Target Cells 1+ Tear Drop Cells Not Reportable Ovalocytes Not Reportable Helmet Cells Not Reportable Loyd-[place] Bodies Not Reportable [place] Rings Not Reportable [place] Cells Not Reportable Bite Cells Not Reportable Crenated Cell Not Reportable Elliptocytes Not Reportable Acanthocytes (Spur) Not Reportable Rouleaux Not Reportable Hemoglobin C Crystals Not Reportable Schistocytes Not Reportable Malaria parasites Not Reportable Jorge Bodies Not Reportable Hem Pathologist Commnt No PT INR APTT Sodium Potassium Chloride Carbon Dioxide Anion Gap BUN Creatinine Estimated GFR BUN/Creatinine Ratio Glucose Calcium Total Bilirubin AST ALT Alkaline Phosphatase Total Protein Albumin Albumin/Globulin Ratio Acetaminophen < 5.0 L Hepatitis A IgM Ab Reactive A Hep Bs Antigen Non-reactive Hep B Core IgM Ab Non-reactive Hepatitis C Antibody Non-reactive 05/15/19 06:12 WBC RBC Hgb Hct MCV MCH MCHC RDW Plt Count Emmons % (Auto) Add Manual Diff Total Counted Seg Neuts % (Manual) Band Neutrophils % Lymphocytes % (Manual) Reactive Lymphs % (Man) Monocytes % (Manual) Eosinophils % (Manual) Basophils % (Manual) Metamyelocytes % Myelocytes % Promyelocytes % Blast Cells % Nucleated RBC % Seg Neutrophils # Man Band Neutrophils # Lymphocytes # (Manual) Abs React Lymphs (Man) Monocytes # (Manual) Eosinophils # (Manual) Basophils # (Manual) Metamyelocytes # Myelocytes # Promyelocytes # Blast Cells # WBC Morphology Hypersegmented Neuts Hyposegmented Neuts Hypogranular Neuts Smudge Cells Toxic Granulation Toxic Vacuolation Dohle Bodies Pelger-Huet Anomaly Pankaj Rods Platelet Estimate Clumped Platelets Plt Clumps, EDTA Large Platelets Giant Platelets Platelet Satelliting Plt Morphology Comment RBC Morphology Dimorphic RBCs Polychromasia Hypochromasia Poikilocytosis Anisocytosis Microcytosis Macrocytosis Spherocytes Pappenheimer Bodies Sickle Cells Target Cells Tear Drop Cells Ovalocytes Helmet Cells L[place] Bodies [place] Rings Gus Cells Bite Cells Crenated Cell Elliptocytes Acanthocytes (Spur) Rouleaux Hemoglobin C Crystals Schistocytes Malaria parasites Jorge Bodies Hem Pathologist Commnt PT INR APTT Sodium 136 L Potassium 3.4 L Chloride 99.3 Carbon Dioxide 24 Anion Gap 16 BUN 6 L Creatinine 0.6 L Estimated GFR > 60 BUN/Creatinine Ratio 10 Glucose 107 H Calcium 8.3 L Total Bilirubin 7.00 H AST 1354 H ALT 2525 H Alkaline Phosphatase 159 H Total Protein 7.9 Albumin 3.4 L Albumin/Globulin Ratio 0.8 Acetaminophen Hepatitis A IgM Ab Hep Bs Antigen Hep B Core IgM Ab Hepatitis C Antibody Assessment and Plan Pt seen and examined. Acute Hep A. No evidence of fulminant failure. 95% chance of spontaneous resolution. - okay to D/C tomorrow if augustin po and LFTs continue to improve. - f/u as outpatient in 2-3 wks to f/u.
--- NOTE | 2019-05-15 11:59 | Consultation ---
History of Present Illness - Reason for Consult Consult date: 05/15/19 - History of Present Illness 29 yo F no PMHx presented to the hospital complaining of upper abdominal pain with associated back pain, N/V, and chills which began 3 days prior to admission. She notes that she recently travelled to [place]. She denies any sick contacts at the time. She recently took a course of Bactrim for a UTI, but otherwise denies any past medical history. Imaging personally reviewed: Abdominal ultrasound - no abnormality detected Review of Systems: Bold if positive, otherwise negative General: fevers, chills, rigors HEENT: visual disturbance, diplopia, eye pain Respiratory: cough, sputum, hemoptysis, shortness of breath Cardiovascular: chest pain, syncope Gastrointestinal: nausea, vomiting, diarrhea, abdominal pain Genitourinary: dysuria, hematuria, flank pain Musculoskeletal: neck pain, back pain, joint pain, edema Neurologic: headaches, seizures Hematologic: easy bruising or bleeding Endocrine: night sweats, acute weight loss Skin: rash, jaundice, redness Psychiatric: suicidal, homicidal ideation Past History Past Medical History: No medical history Past Surgical History: No surgical history Social history: no significant social history, other (alcohol-occasional). denies: smoking Family history: no significant family history Medications and Allergies Allergies Allergy/AdvReac Type Severity Reaction Status Date / Time No Known Allergies Allergy Verified 05/14/19 21:05 Home Medications Medication Instructions Recorded Confirmed Last Taken Type No Known Home Medications [No 05/14/19 05/14/19 Unknown History Reported Home Medications] Active Meds: Active Medications Acetaminophen (Tylenol) 650 mg PO Q4H PRN PRN Reason: Pain MILD(1-3)/Fever >100.5/HWANG Famotidine (Pepcid) 20 mg IV BID [facility] Last Admin: 05/15/19 09:34 Dose: 20 mg Documented by: Hydromorphone HCl (Dilaudid) 0.5 mg IV Q3H PRN PRN Reason: Pain , Severe (7-10) Last Admin: 05/15/19 09:43 Dose: 0.5 mg Documented by: Dextrose/Sodium Chloride (D5ns) 1,000 mls @ 75 mls/hr IV DIRECT KUSUM Last Admin: 05/15/19 09:47 Dose: 75 mls/hr Documented by: Ondansetron HCl (Zofran) 4 mg IV Q3H PRN PRN Reason: Nausea And Vomiting Sodium Chloride (Sodium Chloride Flush Syringe 10 Ml) 10 ml IV BID KUSUM Last Admin: 05/15/19 09:48 Dose: 10 ml Documented by: Sodium Chloride (Sodium Chloride Flush Syringe 10 Ml) 10 ml IV PRN PRN PRN Reason: LINE FLUSH Physical Examination - Physical Exam Narrative exam: Constitutional: Alert, cooperative. No acute distress Head, Ears, Nose: Normocephalic, atraumatic. External ears, nose normal Eyes: Conjunctivae/corneas clear. No icterus. No ptosis. Neck: Supple, no meningeal signs Oral: dentition fair, no thrush Cardiovascular: S1, S2 normal. Respiratory: Good air entry, clear to auscultation bilaterally GI: Soft, non-tender; bowel sounds normal. No peritoneal signs. Musculoskeletal: No pedal edema, no cyanosis. Skin: No rash or abscess Hem/Lymphatic: No palpable cervical or supraclavicular nodes. No lymphangitis Psych: Mood ok. Affect normal Neurological: Awake, alert, oriented. No gross abnormality - Constitutional Vitals: Vital Signs Temp Pulse Resp BP Pulse Ox 98.1 F 60 16 106/54 100 05/15/19 05:45 05/15/19 05:45 05/15/19 05:45 05/15/19 05:45 05/15/19 05:45 Temperature -Last 24 Hours Temperature 98.1 F Temperature 98.1 F Temperature 97.8 F Temperature 98.4 F Temperature 98.4 F Results - Labs CBC & Chem 7: 05/15/19 06:12 05/15/19 06:12 Labs: Abnormal lab results 05/14/19 05/14/19 05/14/19 Range/Units 13:34 13:34 14:17 RBC 5.13 H (3.65-5.03) M/mm3 MCV 76 L (79-97) fl MCH 24 L (28-32) pg Monocytes % (Manual) 23.0 H (0.0-7.3) % Eosinophils % (Manual) (0.0-4.3) % Monocytes # (Manual) 1.6 H (0.0-0.8) K/mm3 Sodium 135 L (137-145) mmol/L Potassium 3.2 L (3.6-5.0) mmol/L Chloride 91.9 L (98-107) mmol/L BUN (7-17) mg/dL Creatinine (0.7-1.2) mg/dL Glucose (65-100) mg/dL Calcium (8.4-10.2) mg/dL Total Bilirubin 8.40 H (0.1-1.2) mg/dL AST 2363 H (5-40) units/L ALT 2747 H (7-56) units/L Alkaline Phosphatase 179 H (35-129) units/L Total Protein 9.1 H (6.3-8.2) g/dL Albumin (3.9-5) g/dL Urine WBC (Auto) 36.0 H (0.0-6.0) /HPF Acetaminophen (10.0-30.0) ug/mL Hepatitis A IgM Ab (NonReactive) 05/14/19 05/14/19 05/15/19 Range/Units 19:56 19:56 06:12 RBC (3.65-5.03) M/mm3 MCV 76 L (79-97) fl MCH 24 L (28-32) pg Monocytes % (Manual) 17.0 H (0.0-7.3) % Eosinophils % (Manual) 5.0 H (0.0-4.3) % Monocytes # (Manual) 0.9 H (0.0-0.8) K/mm3 Sodium (137-145) mmol/L Potassium (3.6-5.0) mmol/L Chloride (98-107) mmol/L BUN (7-17) mg/dL Creatinine (0.7-1.2) mg/dL Glucose (65-100) mg/dL Calcium (8.4-10.2) mg/dL Total Bilirubin (0.1-1.2) mg/dL AST (5-40) units/L ALT (7-56) units/L Alkaline Phosphatase (35-129) units/L Total Protein (6.3-8.2) g/dL Albumin (3.9-5) g/dL Urine WBC (Auto) (0.0-6.0) /HPF Acetaminophen < 5.0 L (10.0-30.0) ug/mL Hepatitis A IgM Ab Reactive A (NonReactive) 05/15/19 Range/Units 06:12 RBC (3.65-5.03) M/mm3 MCV (79-97) fl MCH (28-32) pg Monocytes % (Manual) (0.0-7.3) % Eosinophils % (Manual) (0.0-4.3) % Monocytes # (Manual) (0.0-0.8) K/mm3 Sodium 136 L (137-145) mmol/L Potassium 3.4 L (3.6-5.0) mmol/L Chloride (98-107) mmol/L BUN 6 L (7-17) mg/dL Creatinine 0.6 L (0.7-1.2) mg/dL Glucose 107 H (65-100) mg/dL Calcium 8.3 L (8.4-10.2) mg/dL Total Bilirubin 7.00 H (0.1-1.2) mg/dL AST 1354 H (5-40) units/L ALT 2525 H (7-56) units/L Alkaline Phosphatase 159 H (35-129) units/L Total Protein (6.3-8.2) g/dL Albumin 3.4 L (3.9-5) g/dL Urine WBC (Auto) (0.0-6.0) /HPF Acetaminophen (10.0-30.0) ug/mL Hepatitis A IgM Ab (NonReactive) Assessment and Plan Cultures: None A/P: 29 yo F no PMHx admitted with acute hepatitis A 1. Hepatitis A - no acute infectious disease intervention. Supportive care only. Household contacts need to be vaccinated. Would recommend hepatitis B vaccintation after hepatitis A resolved. Likely acquired in [place]. Recs: - supportive care - household contacts should be vaccinated for Hepatitis A - She should be vaccinated against hepatitis B after her acute episode is resolved. Thank you for the consult, we will continue to follow. Comfort Patiño MD [facility] ([facility]) M: [phone] O: [phone] F: [phone]
[2019-05-15] MEDS: ONDANSETRON 4 MG/2 ML INJ IV PRN ×3 (14:54→21:40)
--- NOTE | 2019-05-15 16:04 | Progress Note ---
Assessment and Plan - Patient Problems (1) Acute hepatitis Current Visit: Yes Status: Acute Plan to address problem: Sec to Hepatitis A ID consult appreciated GI consult appreciated IV Fluids (2) Transaminitis Current Visit: Yes Status: Acute Plan to address problem: Sec To Hepatitis A Improving Symptomatic treatment IV Fluids (3) Dehydration Current Visit: Yes Status: Acute Plan to address problem: IV Fluids for now (4) Hypokalemia Current Visit: Yes Status: Acute Plan to address problem: Supplemented (5) DVT prophylaxis Current Visit: Yes Status: Acute Plan to address problem: On Lovenox and GI prophylaxis Subjective Date of service: 05/15/19 Principal diagnosis: Acute Hepatitis A Interval history: Symptomatically still nauseous.And vomiting. Objective - Constitutional Vitals: Vital Signs - 12hr 05/15/19 05/15/19 05:45 12:21 Temperature 98.1 F 97.9 F Pulse Rate 60 56 L Respiratory 16 14 Rate Blood Pressure 106/54 94/57 O2 Sat by Pulse 100 97 Oximetry General appearance: Present: no acute distress, well-nourished - EENT Eyes: PERRL, EOM intact ENT: hearing intact, clear oral mucosa Ears: bilateral: normal - Neck Neck: supple, normal ROM - Respiratory Respiratory effort: normal Respiratory: bilateral: CTA - Breasts Breasts: normal - Cardiovascular Rhythm: regular Heart Sounds: Present: S1 & S2. Absent: gallop, rub Extremities: pulses intact, No edema, normal color, Full ROM - Gastrointestinal General gastrointestinal: Present: soft, non-tender, non-distended, normal bowel sounds - Genitourinary Female genitourinary: normal - Integumentary Integumentary: clear, warm, dry - Musculoskeletal Musculoskeletal: 1, strength equal bilaterally - Neurologic Neurologic: moves all extremities - Psychiatric Psychiatric: memory intact, appropriate mood/affect, intact judgment & insight - Labs CBC & Chem 7: 05/15/19 06:12 05/16/19 06:15 Labs: Abnormal lab results 05/14/19 05/14/19 05/14/19 Range/Units 13:34 19:56 19:56 MCV (79-97) fl MCH (28-32) pg Monocytes % (Manual) 23.0 H (0.0-7.3) % Eosinophils % (Manual) (0.0-4.3) % Monocytes # (Manual) 1.6 H (0.0-0.8) K/mm3 Sodium (137-145) mmol/L Potassium (3.6-5.0) mmol/L BUN (7-17) mg/dL Creatinine (0.7-1.2) mg/dL Glucose (65-100) mg/dL Calcium (8.4-10.2) mg/dL Total Bilirubin (0.1-1.2) mg/dL AST (5-40) units/L ALT (7-56) units/L Alkaline Phosphatase (35-129) units/L Albumin (3.9-5) g/dL Acetaminophen < 5.0 L (10.0-30.0) ug/mL Hepatitis A IgM Ab Reactive A (NonReactive) 05/15/19 05/15/19 Range/Units 06:12 06:12 MCV 76 L (79-97) fl MCH 24 L (28-32) pg Monocytes % (Manual) 17.0 H (0.0-7.3) % Eosinophils % (Manual) 5.0 H (0.0-4.3) % Monocytes # (Manual) 0.9 H (0.0-0.8) K/mm3 Sodium 136 L (137-145) mmol/L Potassium 3.4 L (3.6-5.0) mmol/L BUN 6 L (7-17) mg/dL Creatinine 0.6 L (0.7-1.2) mg/dL Glucose 107 H (65-100) mg/dL Calcium 8.3 L (8.4-10.2) mg/dL Total Bilirubin 7.00 H (0.1-1.2) mg/dL AST 1354 H (5-40) units/L ALT 2525 H (7-56) units/L Alkaline Phosphatase 159 H (35-129) units/L Albumin 3.4 L (3.9-5) g/dL Acetaminophen (10.0-30.0) ug/mL Hepatitis A IgM Ab (NonReactive)
[2019-05-15] MEDS: FAMOTIDINE 20 MG TAB PO SCH (21:40)
[2019-05-16] MEDS: D5W/0.9% NACL 1,000 ML IV SCH ×2 (00:02→14:23)
[2019-05-16] MEDS: HYDROmorphone 1 MG/1 ML INJ IV PRN ×4 (02:53→18:03)
[2019-05-16] MEDS: ONDANSETRON 4 MG/2 ML INJ IV PRN ×4 (02:53→18:03)
[2019-05-16 06:55] LABS: INR 1.1 (0.87-1.13)
[2019-05-16 07:15] LABS: Albumin 3.4 g/dL (3.9-5); BUN/Creatinine Ratio 5; Blood Urea Nitrogen 3 mg/dL (7-17); Calcium 8.3 mg/dL (8.4-10.2); Hemolysis Index 0
[2019-05-16 07:30] LABS: Alanine Aminotransferase 1909 units/L (7-56)
[2019-05-16] MEDS: FAMOTIDINE 20 MG TAB PO SCH (09:01)
--- NOTE | 2019-05-16 11:29 | Gastroenterology Progress Note ---
<YESY PATTERSON - Last Filed: 05/16/19 11:41> Assessment and Plan 1.elevated LFTs 2.Hepatitis A -afebrile -WBC, H/H, and lipase WNL -INR and plt WNL -LFTs-trending down -acetaminophen level negative -CAYLA pending -hepatitis panel with POSITIVE hepatitis A IgM Ab -abd U/S negative (liver normal) -etiology-most likely 2/2 acute hep A -clinically, patient is stable with symptoms improving. -diet as tolerated -avoid hepatotoxic agents -continue to trend labs and supportive care -patient okay to be d/c per GI standpoint with f/u in clinic in 2-3 wks -will sign off, please call if needed Subjective Date of service: 05/16/19 Principal diagnosis: elevated LFTs Interval history: No acute distress. Objective - Constitutional Vitals: Temp Pulse Resp BP Pulse Ox 98.1 F 54 L 18 97/66 100 05/16/19 05:38 05/16/19 05:38 05/16/19 05:38 05/16/19 05:38 05/16/19 05:38 General appearance: no acute distress, obese - Respiratory Respiratory effort: normal Respiratory: bilateral: CTA - Cardiovascular Rhythm: regular - Gastrointestinal General gastrointestinal: Present: soft, non-tender, non-distended, normal bowel sounds - Neurologic Neurological: alert and oriented x3 - Labs CBC & Chem 7: 05/15/19 06:12 05/16/19 06:15 Labs: Laboratory Results - last 24 hr 05/14/19 05/16/19 05/16/19 13:34 06:15 06:15 Pathologist Review PT 14.1 INR 1.10 Sodium 139 Potassium 3.7 Chloride 105.2 Carbon Dioxide 22 Anion Gap 16 BUN 3 L Creatinine 0.6 L Estimated GFR > 60 BUN/Creatinine Ratio 5 Glucose 113 H Calcium 8.3 L Total Bilirubin 5.50 H AST 885 H ALT 1909 H Alkaline Phosphatase 149 H Total Protein 7.5 Albumin 3.4 L Albumin/Globulin Ratio 0.8 <GIN PRIDE - Last Filed: 05/16/19 17:09> Assessment and Plan Improving. Plan as noted. Objective - Constitutional Vitals: Temp Pulse Resp BP Pulse Ox 98.6 F 54 L 16 112/66 100 05/16/19 16:27 05/16/19 16:27 05/16/19 16:27 05/16/19 16:27 05/16/19 16:27 - Labs CBC & Chem 7: 05/15/19 06:12 05/16/19 06:15 Labs: Laboratory Results - last 24 hr 05/16/19 05/16/19 06:15 06:15 PT 14.1 INR 1.10 Sodium 139 Potassium 3.7 Chloride 105.2 Carbon Dioxide 22 Anion Gap 16 BUN 3 L Creatinine 0.6 L Estimated GFR > 60 BUN/Creatinine Ratio 5 Glucose 113 H Calcium 8.3 L Total Bilirubin 5.50 H AST 885 H ALT 1909 H Alkaline Phosphatase 149 H Total Protein 7.5 Albumin 3.4 L Albumin/Globulin Ratio 0.8
--- NOTE | 2019-05-16 13:30 | Progress Note ---
Assessment and Plan Cultures: None A/P: 29 yo F no PMHx admitted with acute hepatitis A 1. Hepatitis A - no acute infectious disease intervention. Supportive care only. Household contacts need to be vaccinated. Would recommend hepatitis B vaccintation after hepatitis A resolved. Likely acquired in [place]. Recs: - supportive care - household contacts should be vaccinated for Hepatitis A - She should be vaccinated against hepatitis B after her acute episode is resolved. - no barrier to discharge from infectious disease perspective. Thank you for the consult, we will continue to follow. Comfort Patiño MD [facility] ([facility]) M: [phone] O: [phone] F: [phone] Subjective Date of service: 05/16/19 Principal diagnosis: elevated LFTs Interval history: No new issues. Feels well. Objective - Exam Narrative Exam: Constitutional: Alert, cooperative. No acute distress Head, Ears, Nose: Normocephalic, atraumatic. External ears, nose normal Eyes: Conjunctivae/corneas clear. No icterus. No ptosis. Neck: Supple, no meningeal signs Oral: dentition fair, no thrush Cardiovascular: S1, S2 normal. Respiratory: Good air entry, clear to auscultation bilaterally GI: Soft, non-tender; bowel sounds normal. No peritoneal signs. Musculoskeletal: No pedal edema, no cyanosis. Skin: No rash or abscess Hem/Lymphatic: No palpable cervical or supraclavicular nodes. No lymphangitis Psych: Mood ok. Affect normal Neurological: Awake, alert, oriented. No gross abnormality - Constitutional Vitals: Vital Signs Temp Pulse Resp BP Pulse Ox 98.1 F 52 L 16 103/66 98 05/16/19 11:45 05/16/19 11:45 05/16/19 11:45 05/16/19 11:45 05/16/19 11:45 Temperature -Last 24 Hours Temperature 98.1 F Temperature 98.1 F Temperature 98.0 F Temperature 98.1 F - Labs CBC & Chem 7: 05/15/19 06:12 05/16/19 06:15 Labs: Abnormal lab results 05/16/19 Range/Units 06:15 BUN 3 L (7-17) mg/dL Creatinine 0.6 L (0.7-1.2) mg/dL Glucose 113 H (65-100) mg/dL Calcium 8.3 L (8.4-10.2) mg/dL Total Bilirubin 5.50 H (0.1-1.2) mg/dL AST 885 H (5-40) units/L ALT 1909 H (7-56) units/L Alkaline Phosphatase 149 H (35-129) units/L Albumin 3.4 L (3.9-5) g/dL
--- NOTE | 2019-05-16 16:26 | Discharge Summary ---
Providers - Providers Date of Admission: 05/16/19 09:28 Date of discharge: 05/16/19 Attending physician: LSIA CLAY 05/14/19 17:55 Consult to Physician [CONS] Routine Comment: Consulting Provider: FRANKLIN LE Physician Instructions: Reason For Exam: Hepatitis, Transaminitis, Jaundice 05/14/19 21:19 Consult to Physician [CONS] Routine Comment: Consulting Provider: RORO BEST Physician Instructions: Reason For Exam: hepatitis A Primary care physician: CANDLE MOLDER MACHINE Hospitalization Condition: Fair Hospital course: 29-year-old -[place] female presents to the emergency department with complaint of back pain, upper abdominal pain, chills, nausea, vomiting for the past few days. The patient was recently started on some Bactrim for a urinary tract infection 3 days ago. Otherwise she has not taken anything for her symptoms prior to arrival. No past medical history. She does not have a primary care physician. Patient recently traveled to [place]. (1) Acute hepatitis Current Visit: Yes Status: Acute Plan to address problem: Sec to Hepatitis A ID consult appreciated GI consult appreciated Improving Transaminitis improvong (2) Transaminitis Current Visit: Yes Status: Acute Plan to address problem: Sec To Hepatitis A Improving (3) Dehydration Current Visit: Yes Status: Acute Plan to address problem: Improved (4) Hypokalemia Current Visit: Yes Status: Acute Plan to address problem: Supplemented Disposition: DC-01 TO HOME OR SELFCARE Core Measure Documentation - Palliative Care Palliative Care/ Comfort Measures: Not Applicable - Core Measures Any of the following diagnoses?: none Exam - Constitutional Vitals: Temp Pulse Resp BP Pulse Ox 98.1 F 52 L 16 103/66 98 05/16/19 11:45 05/16/19 11:45 05/16/19 11:45 05/16/19 11:45 05/16/19 11:45 General appearance: Present: no acute distress, well-nourished - EENT Eyes: Present: PERRL ENT: hearing intact, clear oral mucosa - Neck Neck: Present: supple, normal ROM - Respiratory Respiratory effort: normal Respiratory: bilateral: CTA - Cardiovascular Heart Sounds: Present: S1 & S2. Absent: rub, click - Extremities Extremities: no ischemia, pulses symmetrical, No edema Peripheral Pulses: within normal limits - Abdominal General gastrointestinal: Present: soft, non-tender, non-distended, normal bowel sounds Female genitourinary: Present: normal - Rectal Rectal Exam: deferred - Integumentary Integumentary: Present: clear, warm, dry - Musculoskeletal Musculoskeletal: gait normal, strength equal bilaterally - Psychiatric Psychiatric: appropriate mood/affect, intact judgment & insight - Neurologic Neurologic: CNII-XII intact, moves all extremities - Allied Health Allied health notes reviewed: nursing, case management Plan Activity: no restrictions Diet: clear liquids Follow up with: PRIMARY CAREMD [Primary Care Provider] - 3-5 Days GIN PRIDE MD [Staff Physician] - 7 Days
[2019-05-16 17:01] VITALS: BP 112/66
[2019-05-17 22:04] LABS: ANA Screen, IFA Negative (Negative)
== END 2019-05-16 19:28 | disposition home or self-care (01) | DRG 442 ==
LOC: ED 12:09 → 3A 17:58 → OBSVTOIN 05-16 09:28
PROVIDERS: ADMIT Internal Medicine; ATTEND Internal Medicine
DX: B15.9 Hepatitis A without hepatic coma (principal); R17 Unspecified jaundice; R74.0 Nonspecific elevation of levels of transaminase and lactic acid dehydrogenase [LDH]; E86.0 Dehydration; E87.6 Hypokalemia; Z72.89 Other problems related to lifestyle
CPT/HCPCS: 36415; 76705; 80053; 80074; 80320; 81001; 83690; 84703; 85007; 85025; 85610; 85730; 86038; 87086; 96374; 96375; G0378; G0480; J1170; J2405; J7030; J7042; Q0162